=== PATIENT | male | born 1945 | race Caucasian/White ===

== ENCOUNTER 2020-02-18 20:51 | Emergency (ER) | payer BC, MEDICARE, OTHER ==
[2020-02-18] MEDS ORDERED: Sodium Chloride 0.9% 10 ML Syringe FLUSH PRN (21:11)
[2020-02-18] MEDS ORDERED: Atropine/Diphenoxylate 0.025-2.5 MG Tab PO ONE (21:15)
--- NOTE | 2020-02-18 21:15 | EDM.PDOC ---
ED HPI GENERAL MEDICAL PROBLEM - General Chief Complaint: Gastrointestinal Problem Stated Complaint: FEVER/DIAREAH Time Seen by Provider: 02/18/20 21:14 Source of Information: Reports: Patient, RN History Limitations: Reports: No Limitations - History of Present Illness INITIAL COMMENTS - FREE TEXT/NARRATIVE: 75 yo male here with diarrhea, low grade fever, cough, and weakness. Sx's x 3 days. No diarrhea today. No Tylenol before arrival. Here with . Has not been seen in the last 3 days. Onset: Gradual Onset Date: 02/15/20 Duration: Day(s): (3+), Getting Worse Location: Reports: Chest, Abdomen Quality: Reports: Other (pain not reported) Severity: Moderate Improves with: Reports: None Worsens with: Reports: Other (time) Context: Reports: Other (See HPI) Associated Symptoms: Reports: Cough, Fever/Chills, Malaise, Shortness of Breath. Denies: Chest Pain, Rash Treatments FINGER COBBLER: Reports: Other (see below) (none) denies pain Pain Score (Numeric/FACES): 0 - Related Data Allergies Allergy/AdvReac Type Severity Reaction Status Date / Time No Known Allergies Allergy Verified 02/18/20 21:23 Home Meds: Home Meds NK [No Known Home Meds] 02/18/20 [History] ED ROS GENERAL - Review of Systems Review Of Systems: See Below Constitutional: Reports: Fever, Chills, Malaise, Fatigue, Weight Loss HEENT: Reports: No Symptoms Respiratory: Reports: Shortness of Breath, Cough. Denies: Wheezing, Pleuritic Chest Pain, Sputum, Hemoptysis Cardiovascular: Reports: No Symptoms GI/Abdominal: Reports: Diarrhea. Denies: Abdominal Pain, Black Stool, Bloody Stool, Hematochezia, Melena : Reports: No Symptoms Musculoskeletal: Reports: No Symptoms Skin: Reports: No Symptoms Neurological: Reports: No Symptoms ED EXAM, GI/ABD - Physical Exam Exam: See Below Exam Limited By: No Limitations General Appearance: Alert, WD/WN, Mild Distress Eyes: Bilateral: Normal Appearance Ears: Normal External Exam, Normal Canal, Hearing Loss Nose: Normal Inspection, No Blood Throat/Mouth: Normal Inspection, Normal Lips, Normal Oropharynx, Normal Voice, No Airway Compromise Head: Atraumatic, Normocephalic Neck: Normal Inspection Respiratory/Chest: Rales, Other (mild tachypnea) Cardiovascular: Regular Rate, Rhythm, No Edema, Tachycardia GI/Abdominal Exam: Normal Bowel Sounds, Soft, Non-Tender, No Distention Back Exam: Normal Inspection. No: CVA Tenderness (R), CVA Tenderness (L) Extremities: Normal Inspection, Normal Range of Motion, Non-Tender, No Pedal Edema Neurological: Alert, Oriented, CN II-XII Intact, Normal Cognition, No Motor/Sensory Deficits Psychiatric: Normal Affect, Normal Mood Skin Exam: Warm, Dry, Intact, Normal Color, No Rash Course - Vital Signs Text/Narrative:: Called Thomas Rae @ [id number], discussed with hospitalist. Last Recorded V/S: Last Vital Signs Temp 37.7 C 02/18/20 22:27 Pulse 104 H 02/18/20 22:28 Resp 24 H 02/18/20 22:28 BP 118/70 02/18/20 22:28 Pulse Ox 89 L 02/18/20 22:28 - Orders/Labs/Meds Orders: Active Orders 24 hr Category Date Time Status EKG Documentation Completion [RC] ASDIRECTED Care 02/18/20 22:45 Active Oxygen Therapy Adult [Oxygen Therapy, ED] [RC] Care 02/18/20 21:13 Active ASDIRECTED Chest 1V Frontal [CR] Stat Exams 02/18/20 21:13 Taken TROPONIN I [CHEM] Stat Lab 02/18/20 22:45 Ordered UA W/MICROSCOPIC [URIN] Stat Lab 02/18/20 21:12 Ordered NS + KCl 20mEq/L [Normal Saline with 20 mEq KCl] 1,000 Med 02/18/20 22:15 Active ml IV ASDIRECTED Sodium Chloride 0.9% [Saline Flush] Med 02/18/20 21:11 Active 10 ml FLUSH ASDIRECTED PRN Saline Lock Insert [OM.PC] Routine Oth 02/18/20 21:11 Ordered EKG 12 Lead [EK] Routine Ther 02/18/20 22:45 Ordered Medication Orders Potassium Chloride/Sodium Chloride (Normal Saline With 20 Meq Kcl) 1,000 mls @ 125 mls/hr IV ASDIRECTED BETTY Last Admin: 02/18/20 22:29 Dose: 125 mls/hr Documented by: MARJORIE Sodium Chloride (Saline Flush) 10 ml FLUSH ASDIRECTED PRN PRN Reason: Keep Vein Open Last Admin: 02/18/20 21:48 Dose: 10 ml Documented by: MARJORIE Labs: Laboratory Tests 02/18/20 02/18/20 02/18/20 Range/Units 21:35 21:35 21:35 WBC 9.7 (4.5-11.0) K/uL RBC 5.81 (4.30-5.90) M/uL Hgb 16.7 H (12.0-15.0) g/dL Hct 50.0 (40.0-54.0) % MCV 86 (80-98) fL MCH 29 (27-31) pg MCHC 33 (32-36) % Plt Count 233 (150-400) K/uL D-Dimer, Quantitative 3990.45 H (0.0-500.0) ng/mL Sodium 135 L (140-148) mmol/L Potassium 3.9 (3.6-5.2) mmol/L Chloride 99 L (100-108) mmol/L Carbon Dioxide 23 (21-32) mmol/L Anion Gap 16.9 H (5.0-14.0) mmol/L BUN 29 H (7-18) mg/dL Creatinine 1.3 (0.8-1.3) mg/dL Est Cr Clr Drug Dosing 50.68 mL/min Estimated GFR (MDRD) 54 L (>60) Glucose 119 H (74-106) mg/dL Calcium 8.4 L (8.5-10.1) mg/dL Lactate Dehydrogenase 509 H (85-227) U/L C-Reactive Protein 17.47 H (0.0-0.3) mg/dL SARS-CoV-2 RNA (KLAUDIA) (NEGATIVE) 02/18/20 Range/Units 21:47 WBC (4.5-11.0) K/uL RBC (4.30-5.90) M/uL Hgb (12.0-15.0) g/dL Hct (40.0-54.0) % MCV (80-98) fL MCH (27-31) pg MCHC (32-36) % Plt Count (150-400) K/uL D-Dimer, Quantitative (0.0-500.0) ng/mL Sodium (140-148) mmol/L Potassium (3.6-5.2) mmol/L Chloride (100-108) mmol/L Carbon Dioxide (21-32) mmol/L Anion Gap (5.0-14.0) mmol/L BUN (7-18) mg/dL Creatinine (0.8-1.3) mg/dL Est Cr Clr Drug Dosing mL/min Estimated GFR (MDRD) (>60) Glucose (74-106) mg/dL Calcium (8.5-10.1) mg/dL Lactate Dehydrogenase (85-227) U/L C-Reactive Protein (0.0-0.3) mg/dL SARS-CoV-2 RNA (KLAUDIA) Positive H (NEGATIVE) Meds: Medications Generic Name Dose Route Start Last Admin Trade Name Freq PRN Reason Stop Dose Admin Potassium Chloride/Sodium Chloride 1,000 mls @ 125 mls/hr 02/18/20 22:15 02/18/20 22:29 Normal Saline With 20 Meq Kcl IV 125 mls/hr ASDIRECTED BETTY Administration Sodium Chloride 10 ml 02/18/20 21:11 02/18/20 21:48 Saline Flush FLUSH 10 ml ASDIRECTED PRN Administration Keep Vein Open Discontinued Medications Generic Name Dose Route Start Last Admin Trade Name Freq PRN Reason Stop Dose Admin Acetaminophen 1,000 mg 02/18/20 21:28 02/18/20 21:48 Tylenol Extra Strength PO 02/18/20 21:29 1,000 mg ONETIME ONE Administration Diphenoxylate HCl/Atropine 2 tab 02/18/20 21:15 02/18/20 21:48 Lomotil 0.025-2.5 Mg PO 02/18/20 21:16 2 tab ONETIME ONE Administration - Radiology Interpretation Free Text/Narrative:: CXR-diffuse infiltrates, retrocardiac infiltrate noted. Dr. Saunders. Departure - Departure Time of Disposition: 23:10 Disposition: DC/Tfer to Acute Hospital 02 Condition: Fair Clinical Impression: COVID-19 - Discharge Information *PRESCRIPTION DRUG MONITORING PROGRAM REVIEWED*: Not Applicable *COPY OF PRESCRIPTION DRUG MONITORING REPORT IN PATIENT NERI: Not Applicable Referrals: Osmel Mann MD [Primary Care Provider] - Forms: ED Department Discharge Sepsis Event Note (ED) - Focused Exam Vital Signs: Vital Signs Temp Pulse Resp BP Pulse Ox Pulse Ox 02/18/20 22:28 104 H 24 H 118/70 89 L 02/18/20 22:27 37.7 C 104 H 35 H 118/70 89 L 02/18/20 21:46 37.5 C 106 H 27 H 126/69 90 L 02/18/20 21:24 37.4 C 111 H 27 H 170/88 H 79 L 02/18/20 21:13 37.4 C 111 H 27 H 170/88 H 79 L 88 L - My Orders Last 24 Hours: My Active Orders 02/18/20 21:11 Sodium Chloride 0.9% [Saline Flush] 10 ml FLUSH ASDIRECTED PRN Saline Lock Insert [OM.PC] Routine 02/18/20 21:12 UA W/MICROSCOPIC [URIN] Stat 02/18/20 21:13 Oxygen Therapy Adult [Oxygen Therapy, ED] [RC] ASDIRECTED Chest 1V Frontal [CR] Stat 02/18/20 22:15 NS + KCl 20mEq/L [Normal Saline with 20 mEq KCl] 1,000 ml IV ASDIRECTED 02/18/20 22:45 EKG Documentation Completion [RC] ASDIRECTED TROPONIN I [CHEM] Stat EKG 12 Lead [EK] Routine - Assessment/Plan Last 24 Hours: My Active Orders 02/18/20 21:11 Sodium Chloride 0.9% [Saline Flush] 10 ml FLUSH ASDIRECTED PRN Saline Lock Insert [OM.PC] Routine 02/18/20 21:12 UA W/MICROSCOPIC [URIN] Stat 02/18/20 21:13 Oxygen Therapy Adult [Oxygen Therapy, ED] [RC] ASDIRECTED Chest 1V Frontal [CR] Stat 02/18/20 22:15 NS + KCl 20mEq/L [Normal Saline with 20 mEq KCl] 1,000 ml IV ASDIRECTED 02/18/20 22:45 EKG Documentation Completion [RC] ASDIRECTED TROPONIN I [CHEM] Stat EKG 12 Lead [EK] Routine
[2020-02-18] MEDS ORDERED: Acetaminophen 500 MG Tab PO ONE (21:28)
[2020-02-18] MEDS ORDERED: NS + KCl 20mEq/L 1,000 ML IV SCH (22:15)
--- NOTE | 2020-02-19 09:18 | CR ---
CHEST: Portable 02/18/2020 at 10:29 PM CLINICAL HISTORY:Hypoxia COMPARISON:2010 FINDINGS: Heart size and pulmonary vascular normal. There are atherosclerotic changes in the aorta. There is patchy infiltrate in both lower lung jacques. There is some ill-defined density in both the upper lung jacques right greater than left.. IMPRESSION: Patchy bilateral pneumonic infiltrates with some ill-defined, likely groundglass opacities in the upper lung jacques. This may represent pneumonitis
== END 2020-02-18 23:50 ==
LOC: JP.ED 20:51
DX: U07.1 COVID-19 (principal)
CPT/HCPCS: 36415; 71045; 80048; 83615; 84484; 85027; 85379; 86140; 93005; 96365; 99285; A9270; J3480; U0002